=== PATIENT | female | born 1995 | race African-American/Black ===

== ENCOUNTER 2016-11-23 17:30 | Inpatient (IN) ==
[2016-11-23] MEDS ORDERED: PROMETHAZINE 25 MG/1 ML VIAL IM ONE (19:51)
[2016-11-23] MEDS ORDERED: PROMETHAZINE 25 MG/1 ML VIAL ONE (19:53)
[2016-11-23] MEDS: MEPERIDINE 25 MG/1 ML VIAL IM PRN (21:06)
[2016-11-24] MEDS: MEPERIDINE 25 MG/1 ML VIAL IM PRN (01:17)
[2016-11-24] MEDS ORDERED: ONDANSETRON 4 MG/2 ML VIAL IV PRN ×2 (04:00→11:06)
[2016-11-24] MEDS ORDERED: ONDANSETRON 4 MG/2 ML VIAL ONE (04:01)
[2016-11-24] MEDS: LACTATED RINGERS 1,000 ML IV SCH ×2 (04:18→09:30)
[2016-11-24] MEDS ORDERED: BUTORPHANOL 2 MG/ML VIAL IV PRN (05:18)
[2016-11-24] MEDS ORDERED: MEPERIDINE 50 MG/1 ML VIAL IV PRN (05:18)
[2016-11-24] MEDS ORDERED: SODIUM CHLORIDE 0.9% 100 ML IV ONE (05:26)
[2016-11-24] MEDS ORDERED: AMPICILLIN 2,000 MG VIAL ONE (05:26)
[2016-11-24] MEDS ORDERED: AMPICILLIN INJ 2,000 MG in SODIUM CHLORIDE 0.9% 100 ML IV SCH (05:30)
[2016-11-24] MEDS ORDERED: MEPERIDINE 50 MG/1 ML VIAL ONE (05:35)
[2016-11-24] MEDS ORDERED: CITRIC ACID/SODIUM CITRATE 30 ML UDCUP PO ONE (05:50)
[2016-11-24] MEDS ORDERED: FAMOTIDINE 20 MG/2 ML VIAL IV ONE (05:50)
[2016-11-24] MEDS ORDERED: ePHEDrine 50 MG/ML AMP IV PRN (05:50)
[2016-11-24] MEDS ORDERED: fentaNYL 2 MCG/ROPIV 0.2% EPID 150 ML EPIDURAL SCH (05:51)
[2016-11-24 05:57] LABS: Basophils % 0.1 % (0.0-0.8); Hemoglobin 11.4 GM/DL (12.0-16.0); Immature Granulocytes % 0.5 %; Lymphocytes # 1.8 10*3/uL (1.4-4.0); Lymphocytes % 8.6 % (21.3-54.2); Mean Corpuscular HGB Conc 33.5 GM/DL (32-36); Mean Corpuscular Hemoglobin 28 PG (27-34); Mean Corpuscular Volume 84.6 FL (87-102); Mean Platelet Volume 9.4 FL (9.6-12.0); Monocytes # 1.2 10*3/uL (0.11-0.8); Monocytes % 5.8 % (1.7-12.7); Neutrophils # 17.5 10*3/uL (1.4-7.4); Platelet Count 282 T/CUMM (130-400); Red Blood Count 4.02 MC/CUMM (3.8-5.5); Red Cell Distribution Width 13.4 % (9.3-17.3); White Blood Count 20.6 T/CUMM (4-12)
[2016-11-24 06:21] LABS: Band Neutrophils 1 % (0-10); Hypochromasia 1+; Lymphocytes 9 % (20-55); Platelet Estimate Adequate; Segmented Neutrophils 85 % (50-85); Total Cells Counted 100
[2016-11-24 06:25] LABS: Albumin 2.7 G/DL (3.4-5.0); Bilirubin,Total 0.9 MG/DL (0.2-1.0); Calcium 8.8 MG/DL (8.5-10.1); Osmolality,Calculated 273.5 MOS/KG (273-304); Potassium 3.8 MMOL/L (3.5-5.1); Total Protein 6.5 G/DL (6.4-8.3)
[2016-11-24] MEDS ORDERED: CITRIC ACID/SODIUM CITRATE 30 ML UDCUP ONE (06:25)
[2016-11-24] MEDS ORDERED: fentaNYL 2 MCG/ROPIV 0.2% EPID 150 ML EPIDURAL ONE (06:26)
[2016-11-24] MEDS ORDERED: LACTATED RINGERS 1,000 ML IV ONE (07:00)
[2016-11-24] MEDS ORDERED: OXYTOCIN/LR 20 UNIT/1,000 ML BAG IV ONE ×2 (07:44→11:06)
[2016-11-24] MEDS ORDERED: LIDOCAINE 1% 50 ML VIAL ONE (07:44)
[2016-11-24] MEDS ORDERED: OXYTOCIN/LR 20 UNIT/1,000 ML BAG IV SCH (09:00)
--- NOTE | 2016-11-24 09:49 | OB/GYN History & Physical ---
History of Present Illness Chief complaint: 39+ weeks active labor History of present illness: Ms. Montes is a 21 year old female 1 para 0 at 39+ weeks estimated gestational age followed by Dr. Huerta who was observed overnight and was found to progress spontaneously labor and spontaneous rupture membranes at 515 this morning which noted be clear [id number]. Presentation is vertex confirmed by the nurses exam she is consequently admitted for expected vaginal delivery. She is currently 67 cm dilated. She requested epidural which has been arranged Home Medications Medication Instructions Recorded Confirmed Type Pnv No.95/Ferrous Fum/Folic AC 1 each PO DAILY 07/04/16 11/23/16 History [ Tablet] Cholecalciferol (Vitamin D3) 5,000 unit PO DAILY 11/22/16 11/23/16 History [Vitamin D3] Allergies Allergy/AdvReac Type Severity Reaction Status Date / Time No Known Allergies Allergy Verified 11/22/16 14:45 12 point system: reviewed and no additional remarkable complaints except as stated Medical,Surgical,& Family Hx - Surgical History Abdominal Surgeries: Surgical HX of: Abdominal Surgery, Hernia Repair Patient denies: Appendectomy, Cholecystectomy, Colonoscopy, Gastric Bypass Surgery, EGD - Family History Family History: Reports;: Family Diabetes (MGM), Family Heart Disease (Brother) , Family Hypertension (MGM) Denies;: Family Anesthesia Reaction, Family Cancer, Family Hematology, Family Psychiatric Problems, Family Stroke, Additional Family History - Social History Smoking Status: Never smoker Frequency of Alcohol Use: None Type of Drug Use: None 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 - Constitutional Vitals: Vital Signs Temp Pulse Resp BP Pulse Ox 11/24/16 08:00 98.4 F 61 18 115/66 100 11/24/16 05:18 97.7 F 64 22 121/63 100 11/24/16 04:00 97.7 F 64 18 121/68 11/24/16 00:00 97.4 F L 67 18 107/55 11/23/16 20:00 97.5 F L 94 H 18 122/65 11/23/16 17:40 97.6 F 97 H 20 112/72 99 General appearance: normal weight, no acute distress - Head Head exam: Present: normal inspection, normocephalic, atraumatic - Eye Eye exam: Present: EOMI - Neck Neck exam: Present: normal inspection - Respiratory Respiratory exam: Present: clear to auscultation bilaterally - Breast Breasts: as per HPI Menstruation: as per HPI - Cardiovascular Cardiovascular exam: Present: regular rate and rhythm - GI/Abdominal GI/Abdominal exam: Present: normal bowel sounds - Extremities Exam Extremities exam: Present: normal inspection, normal capillary refill - Neurological Exam Neurological exam: Present: alert, oriented X3 - Psychiatric Psychiatric exam: Present: normal affect, normal mood - Skin Skin exam: Present: normal color, warm Assessment and Plan (1) with 39 completed weeks gestation Status: Acute Current Visit: Yes (2) Active labor at term Status: Acute Current Visit: Yes Results - Labs CBC & BMP: 11/24/16 05:43 11/24/16 05:43
[2016-11-24 10:31] LABS: Apearance,Urine CLEAR (Clear); Bilirubin,Urine Negative (Negative); Blood, Urine Negative (Negative); Glucose,Urine (UA) Negative (Negative); Ketones,Urine 20 mg/dL (Negative); Mucus,Urine Occasional /LPF (Occasional); Nitrite,Urine Negative (Negative); Protein,Urine 100 MG/DL; RBC,Urine 2 /HPF (0-4); Squamous Epithelial Cell,Urine Occasional /HPF (0-10); Urine Urobilinogen < 2.0 EU/DL (0.2-1.0); WBC,Urine 3 /HPF (0-6)
[2016-11-24 10:32] LABS: Urine Color Yellow (Yellow)
[2016-11-24] MEDS ORDERED: TERBUTALINE 1 MG/1 ML VIAL SUBCUT ONE (10:43)
[2016-11-24] MEDS ORDERED: BISACODYL 10 MG SUPP RECTAL PRN (11:06)
[2016-11-24] MEDS ORDERED: LANOLIN 50% CREAM 0.3 OZ TUBE TOP PRN (11:06)
[2016-11-24] MEDS ORDERED: RHO(D) IMMUNE GLOBULIN 300 MCG SYRINGE IM ONE (11:06)
[2016-11-24] MEDS ORDERED: DIPH/TET/ACEL PERT BOOSTER VACCINE 0.5 ML VIAL IM ONE (11:06)
[2016-11-24] MEDS ORDERED: HYDROCORTISONE 2.5% RECTAL CREAM 30 GM TUBE TOP PRN (11:06)
[2016-11-24] MEDS ORDERED: ACETAMINOPHEN 325 MG TABLET PO PRN (11:06)
[2016-11-24] MEDS ORDERED: BENZOCAINE 20%/MENTHOL 0.5% SPRAY 56 GM CAN TOP PRN (11:06)
[2016-11-24] MEDS ORDERED: oxyCODONE/ACETAMINOPHEN 5-325 MG TABLET PO PRN ×2 (11:06)
[2016-11-24] MEDS ORDERED: WITCH HAZEL PADS 100/JAR TOP PRN (11:06)
[2016-11-24] MEDS ORDERED: MEASLES/MUMPS/RUBELLA VACCINE 0.5 ML VIAL SUBCUT ONE (11:06)
--- NOTE | 2016-11-24 11:06 | OB/GYN Progress Note ---
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 Call dictating vaginal delivery And in LDR environment under sterile conditions, the patient progressed to completely dilated. She was allowed to push and under [epidural] anesthesia had a outlet vacuum delivery of a live born female 7 lbs. 6 oz. Apgars pending over a [second-degree midline episiotomy]. Indications were for vacuum were poor maternal expulsive effort and persistent stress. Presentation was occiput anterior at +3 station with 0 rotation. Kiwi flat vacuum was applied and with a Dawson catheter in place over a second-degree midline episiotomy gentle downward traction along the pelvic curve was performed. The head was delivered the fact was disarticulated in the anterior and posterior shoulders delivered without difficulty. The infant's nose and oropharynx were bulb and DeLee suctioned, and the had spontaneous cry after delivery. Cord pH was obtained result which is pending the cord was doubly clamped and cut and the was handed over to the pediatric team for care. Cord blood was obtained the placenta delivered spontaneously intact and IV Pitocin was done. There were no cervical tears. There were no periurethral tears. The midline episiotomy was repaired with 2-0 Monocryl suture in usual fashion under epidural anesthesia without complication estimated blood loss was 250 mL. There were no complications. The bladder was emptied using a catheter prior to delivery. All sponge needle and instrument counts were correct -3 at the end of the delivery. 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
[2016-11-24] MEDS ORDERED: ACETAMINOPHEN 500 MG TABLET PO PRN (17:13)
[2016-11-24] MEDS: IBUPROFEN 800 MG TABLET PO PRN (18:30)
[2016-11-24] MEDS: DOCUSATE SODIUM 100 MG CAPSULE PO SCH (22:10)
[2016-11-25 01:56] LABS: Basophils % 0.1 % (0.0-0.8); Eosinophils # 0.1 10*3/uL (0.0-0.87); Eosinophils % 0.6 % (0.00-10.9); Hematocrit 28.6 VOL% (35.7-47.0); Hemoglobin 9.5 GM/DL (12.0-16.0); Immature Granulocytes % 0.5 %; Lymphocytes # 3.3 10*3/uL (1.4-4.0); Lymphocytes % 16.3 % (21.3-54.2); Mean Corpuscular HGB Conc 33.2 GM/DL (32-36); Mean Corpuscular Hemoglobin 29 PG (27-34); Mean Corpuscular Volume 86.1 FL (87-102); Mean Platelet Volume 9.3 FL (9.6-12.0); Monocytes # 1.6 10*3/uL (0.11-0.8); Neutrophils # 15.2 10*3/uL (1.4-7.4); Neutrophils % 74.5 % (38.7-73.9); Platelet Count 222 T/CUMM (130-400); Red Blood Count 3.32 MC/CUMM (3.8-5.5); Red Cell Distribution Width 13.6 % (9.3-17.3); White Blood Count 20.4 T/CUMM (4-12)
[2016-11-25 02:43] LABS: Band Neutrophils 3 % (0-10); Lymphocytes 19 % (20-55); Segmented Neutrophils 74 % (50-85); Total Cells Counted 100
[2016-11-25 02:44] LABS: Platelet Estimate Normal
[2016-11-25] MEDS: IBUPROFEN 800 MG TABLET PO PRN ×2 (08:11→18:13)
[2016-11-25] MEDS: DOCUSATE SODIUM 100 MG CAPSULE PO SCH ×2 (08:11→20:15)
[2016-11-25] MEDS ORDERED: [UNRECOGNIZED DRUG - REMARK] PO SCH (09:00)
[2016-11-25] MEDS ORDERED: NON-FORMULARY MEDICATION (Cholecalciferol (Vitamin D3) [Vitamin D3] 5,000 UNIT) PO SCH (09:00)
--- NOTE | 2016-11-25 09:01 | OB/GYN Progress Note ---
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 States is "sleepy". Requests control pills for control method of choice A: PPD 1, Bottle feeding, Stable, Anemia P: Continue routine care. Possible DC home tomorrow. Exam CHIMNEY BUILDER - Constitutional Vitals: Vital Signs Temp Pulse Resp BP Pulse Ox 11/25/16 07:21 97.5 F L 59 L 18 96/54 98 11/25/16 03:55 97.9 F 65 18 103/63 98 11/25/16 01:50 18 11/24/16 23:50 98.5 F 70 20 99/58 99 11/24/16 19:30 97.9 F 88 20 92/53 99 11/24/16 18:00 80 18 99/50 99 11/24/16 17:55 20 11/24/16 17:00 78 18 100/50 98 11/24/16 16:00 78 18 98/54 98 11/24/16 15:52 18 11/24/16 15:30 82 18 97/45 98 11/24/16 15:00 97.8 F 80 18 94/50 98 General appearance: no acute distress - Antepartum / Post Post Exam Abdomen obstetrics: Present: bowel sounds normal Vagina: Present: normal moisture Uterus exam: Present: enlarged (firm, midline, 2 FB below umbilicus) Anus/Rectum: Present: normal perianal skin - Head Head exam: Present: normal inspection - ENT ENT exam: Present: normal exam - Neck Neck exam: Present: normal inspection - Respiratory Respiratory exam: Present: clear to auscultation bilaterally - Breast Menstruation: other (scant rubra noted on perineal pad) - Cardiovascular Cardiovascular exam: Present: regular rate and rhythm - GI/Abdominal GI/Abdominal exam: Present: normal bowel sounds - Extremities Exam Extremities exam: Present: normal inspection, normal capillary refill, full ROM - Back Exam Back exam: Present: normal inspection - Neurological Exam Neurological exam: Present: alert, oriented X3, normal gait - Psychiatric Psychiatric exam: Present: normal affect, normal mood - Skin Skin exam: Present: normal color, dry Results - Labs CBC & BMP: 11/25/16 01:40 11/24/16 05:43 Labs: Laboratory Tests 11/24/16 11/24/16 11/24/16 05:43 05:43 05:43 WBC 20.6 H RBC 4.02 Hgb 11.4 L Hct 34.0 L MCV 84.6 L MCH 28 MCHC 33.5 RDW 13.4 Plt Count 282 MPV 9.4 L Neut % (Auto) 85.0 H Lymph % (Auto) 8.6 L [place] % (Auto) 5.8 Eos % (Auto) 0.0 Baso % (Auto) 0.1 Neut # (Auto) 17.5 H Lymph # (Auto) 1.8 [place] # (Auto) 1.2 H Eos # (Auto) 0.0 Baso # (Auto) 0.0 Total Counted 100 Immature Gran % 0.5 Nucleated RBC % 0.0 Immature Gran # 0.10 Segmented Neutrophils 85 Band Neutrophils 1 Lymphocytes 9 L Monocytes 5 Nucleated RBCs # 0.00 Platelet Estimate Adequate Hypochromasia 1+ Pappenheimer Bodies Morphology Comment Sodium 139 Potassium 3.8 Chloride 107 Carbon Dioxide 18 L Anion Gap 17.8 H BUN 6 L Creatinine 0.60 GFR Calculation 187 BUN/Creatinine Ratio 10.00 Glucose 74 Calculated Osmolality 273.5 Calcium 8.8 Total Bilirubin 0.90 AST 15 ALT 16 Alkaline Phosphatase 143 H Total Protein 6.5 Albumin 2.7 L Globulin 3.8 H Albumin/Globulin Ratio 0.7 L Urine Color Urine Appearance Urine pH Ur Specific [place] Urine Protein Urine Glucose (UA) Urine Ketones Urine Blood Urine Nitrate Urine Bilirubin Urine Urobilinogen Urine Leukocytes Urine RBC Urine WBC Ur Squamous Epith Cells Urine Mucus Ur Culture Indicated? Blood Type O POSITIVE Antibody Screen Negative 11/24/16 11/25/16 09:56 01:40 WBC 20.4 H RBC 3.32 L Hgb 9.5 L Hct 28.6 L MCV 86.1 L MCH 29 MCHC 33.2 RDW 13.6 Plt Count 222 D MPV 9.3 L Neut % (Auto) 74.5 H Lymph % (Auto) 16.3 L [place] % (Auto) 8.0 Eos % (Auto) 0.6 Baso % (Auto) 0.1 Neut # (Auto) 15.2 H Lymph # (Auto) 3.3 [place] # (Auto) 1.6 H Eos # (Auto) 0.1 Baso # (Auto) 0.0 Total Counted 100 Immature Gran % 0.5 Nucleated RBC % 0.0 Immature Gran # 0.10 Segmented Neutrophils 74 Band Neutrophils 3 Lymphocytes 19 L Monocytes 4 Nucleated RBCs # 0.00 Platelet Estimate Normal Hypochromasia Pappenheimer Bodies Overhauler Helper Morphology Comment Sodium Potassium Chloride Carbon Dioxide Anion Gap BUN Creatinine GFR Calculation BUN/Creatinine Ratio Glucose Calculated Osmolality Calcium Total Bilirubin AST ALT Alkaline Phosphatase Total Protein Albumin Globulin Albumin/Globulin Ratio Urine Color Yellow Urine Appearance Clear Urine pH 7.0 Ur Specific [place] 1.020 Urine Protein 100 Urine Glucose (UA) Negative Urine Ketones 20 Urine Blood Negative Urine Nitrate Negative Urine Bilirubin Negative Urine Urobilinogen < 2.0 H Urine Leukocytes Negative Urine RBC 2 Urine WBC 3 Ur Squamous Epith Cells Occasional Urine Mucus Occasional Ur Culture Indicated? Not indicated Blood Type Antibody Screen
--- NOTE | 2016-11-25 09:47 | Anesthesia Post-Op ---
Anesthesia Post OP - Post Ansesthetic Evaluation Patient seen in post op: Yes Resp: within normal limits CV: within normal limits Mental: within normal limits Temp: within normal limits [id number]: within normal limits Nausea and Vomiting: within normal limits Pain: within normal limits
[2016-11-26 07:27] VITALS: BP 101/64
--- NOTE | 2016-11-26 08:19 | Discharge Summary ---
Hospital Course - Hospital Course Hospital Course: Patient is now a 1 para 1001 that presented in spontaneous labor in 39+ weeks. She was delivered by Dr. Denise atkins under an epidural anesthetic and delivered uneventful. She is bottlefeeding without difficulty. She experienced anemia in is on iron sulfate. She is stable and is being discharged home today. Diagnosis - Discharge Diagnosis (1) (normal spontaneous vaginal delivery) Status: Ruled-out (2) Anemia Status: Acute Discharge Plan - Discharge Data Disposition: Disch To Home/Self Care Condition at Discharge: Stable Discharge Diet: advance to your usual diet Hygiene: no restrictions Driving: not for (2 weeks) Contact your physician if you experience:: fever over 101, Difficulty voiding, Redness or swelling, Nausea/Vomiting, Shortness of breath, Bleeding, pain uncontrolled by pain medications - Discharge Medications No Action Pnv No.95/Ferrous Fum/Folic AC [ Tablet] 1 each PO DAILY Cholecalciferol (Vitamin D3) [Vitamin D3] 5,000 unit PO DAILY - Follow Up or Referral Follow Up: Rosanna Hong CFNP [Advanced Practice Nurse] - 2 Weeks - Forms/Instructions Exam - Constitutional Vitals: Period Temp Pulse Resp BP Sys/Se[place]our Pulse Ox Last 24 Hr 97.1 F-98 F 54-76 18-20 97-126/46-71 98-100 General appearance: no acute distress - Head Head exam: Present: normal inspection - Eye Pupils: Present: normal accommodation - ENT ENT exam: Present: normal exam, normal external ear exam - Neck Neck exam: Present: normal inspection - Respiratory Respiratory exam: Present: clear to auscultation bilaterally - Cardiovascular Cardiovascular exam: Present: regular rate and rhythm - GI/Abdominal GI/Abdominal exam: Present: normal bowel sounds, other (uterus firm, midline, 3 FB below umbilicus) - Extremities Exam Extremities exam: Present: normal inspection, normal capillary refill, full ROM - Back Exam Back exam: Present: normal inspection - Neurological Exam Neurological exam: Present: alert, oriented X3, normal gait - Psychiatric Psychiatric exam: Present: normal affect, normal mood - Skin Skin exam: Present: normal color, dry Discharge Results Procedures and tests throughout hospitalization: Laboratory Tests 11/24/16 11/24/16 11/24/16 05:43 05:43 05:43 WBC 20.6 H RBC 4.02 Hgb 11.4 L Hct 34.0 L MCV 84.6 L MCH 28 MCHC 33.5 RDW 13.4 Plt Count 282 MPV 9.4 L Neut % (Auto) 85.0 H Lymph % (Auto) 8.6 L [place] % (Auto) 5.8 Eos % (Auto) 0.0 Baso % (Auto) 0.1 Neut # (Auto) 17.5 H Lymph # (Auto) 1.8 [place] # (Auto) 1.2 H Eos # (Auto) 0.0 Baso # (Auto) 0.0 Total Counted 100 Immature Gran % 0.5 Nucleated RBC % 0.0 Immature Gran # 0.10 Segmented Neutrophils 85 Band Neutrophils 1 Lymphocytes 9 L Monocytes 5 Nucleated RBCs # 0.00 Platelet Estimate Adequate Hypochromasia 1+ Pappenheimer Bodies Morphology Comment Sodium 139 Potassium 3.8 Chloride 107 Carbon Dioxide 18 L Anion Gap 17.8 H BUN 6 L Creatinine 0.60 GFR Calculation 187 BUN/Creatinine Ratio 10.00 Glucose 74 Calculated Osmolality 273.5 Calcium 8.8 Total Bilirubin 0.90 AST 15 ALT 16 Alkaline Phosphatase 143 H Total Protein 6.5 Albumin 2.7 L Globulin 3.8 H Albumin/Globulin Ratio 0.7 L Urine Color Urine Appearance Urine pH Ur Specific [place] Urine Protein Urine Glucose (UA) Urine Ketones Urine Blood Urine Nitrate Urine Bilirubin Urine Urobilinogen Urine Leukocytes Urine RBC Urine WBC Ur Squamous Epith Cells Urine Mucus Ur Culture Indicated? Blood Type O POSITIVE Antibody Screen Negative 11/24/16 11/25/16 09:56 01:40 WBC 20.4 H RBC 3.32 L Hgb 9.5 L Hct 28.6 L MCV 86.1 L MCH 29 MCHC 33.2 RDW 13.6 Plt Count 222 D MPV 9.3 L Neut % (Auto) 74.5 H Lymph % (Auto) 16.3 L [place] % (Auto) 8.0 Eos % (Auto) 0.6 Baso % (Auto) 0.1 Neut # (Auto) 15.2 H Lymph # (Auto) 3.3 [place] # (Auto) 1.6 H Eos # (Auto) 0.1 Baso # (Auto) 0.0 Total Counted 100 Immature Gran % 0.5 Nucleated RBC % 0.0 Immature Gran # 0.10 Segmented Neutrophils 74 Band Neutrophils 3 Lymphocytes 19 L Monocytes 4 Nucleated RBCs # 0.00 Platelet Estimate Normal Hypochromasia Pappenheimer Bodies Seismic Observer Morphology Comment Sodium Potassium Chloride Carbon Dioxide Anion Gap BUN Creatinine GFR Calculation BUN/Creatinine Ratio Glucose Calculated Osmolality Calcium Total Bilirubin AST ALT Alkaline Phosphatase Total Protein Albumin Globulin Albumin/Globulin Ratio Urine Color Yellow Urine Appearance Clear Urine pH 7.0 Ur Specific [place] 1.020 Urine Protein 100 Urine Glucose (UA) Negative Urine Ketones 20 Urine Blood Negative Urine Nitrate Negative Urine Bilirubin Negative Urine Urobilinogen < 2.0 H Urine Leukocytes Negative Urine RBC 2 Urine WBC 3 Ur Squamous Epith Cells Occasional Urine Mucus Occasional Ur Culture Indicated? Not indicated Blood Type Antibody Screen DS: Provider Date of admission: 11/24/16 05:23 Primary care physician: Kyle Dumont Attending physician on admission: Kyle Dumont Consults: 11/24/16 05:18 Consult to Anesthesiology [CONS] Routine Consulting Provider: Reason for Anesthesiology: Epidural Consult Comment: Epidural for pain managment 11/24/16 11:06 Consult to Vacuum Metalizing Supervisor [CONS] Routine Consult Vacuum Metalizing Supervisor: Breast Feeding Discharging clinician: OWEN Turner
[2016-11-26] MEDS: DOCUSATE SODIUM 100 MG CAPSULE PO SCH (08:28)
== END 2016-11-26 13:50 | disposition home or self-care (01) | DRG 560 ==
LOC: N.LDOUT 17:30 → N.LD 17:31 → N.OB 11-24 15:00
PROVIDERS: ADMIT Specialist; ATTEND Obstetrics & Gynecology